=== PATIENT | female | born 1975 | race Caucasian/White ===

== ENCOUNTER → 2017-04-21 | Outpatient (CLI) | payer OTHER ==
--- NOTE | 2017-04-22 15:18 | Mammography Report ---
DIGITAL SCREENING MAMMOGRAM: 04/21/2017 CLINICAL INDICATION: A 41-year-old for screening. COMPARISON: 06/2015 TECHNIQUE: Routine CC and MLO projections were obtained of the breasts. FINDINGS: Scattered fibroglandular tissue is present within the breasts. There are no dominant eric s, suspicious microcalcifications, or secondary signs of malignancy. In comparison to the previous st udies, there are no significant changes. ASSESSMENT: NO MAMMOGRAPHIC EVIDENCE OF MALIGNANCY. NO SIGNIFICANT INTERVAL CHANGES. RECOMMENDATION: Screening mammography is recommended annually. BIRADS category 1 - negative. STANDARD QUALIFYING STATEMENTS 1. This examination was reviewed with the aid of Computed-Aided Detection (CAD). 2. A negative or benign imaging report should not delay biopsy if clinically suspicious findings are present. Consider surgical consultation if warranted. More than 5% of cancers are not identified by i maging. 3. Dense breasts may obscure an underlying neoplasm. JOB #: [id number] EXT JOB #:[id number]
== END ==
LOC: DI 15:30
PROVIDERS: ATTEND Family Medicine
DX: Z12.31 Encounter for screening mammogram for malignant neoplasm of breast (principal)
CPT/HCPCS: 77067

== ENCOUNTER 2017-04-27 08:00 | Outpatient (CLI) | payer OTHER | END 2017-04-27 23:59 | disposition home or self-care (01) | LOC: LAB.R 08:00 | PROVIDERS: ATTEND Obstetrics & Gynecology | DX: N89.8 Other specified noninflammatory disorders of vagina (principal); Z11.3 Encounter for screening for infections with a predominantly sexual mode of transmission | CPT/HCPCS: 87480; 87491; 87510; 87591; 87660 ==

== ENCOUNTER 2018-04-25 14:27 | Outpatient (CLI) | payer OTHER ==
--- NOTE | 2018-04-26 13:24 | Mammography Report ---
Reason: SCREENING MAMMO Procedure Date: 04/25/2018 Accession Number: [id number] / [id number] Procedure: [facility] - Screening Mammo Dig Bilat CPT Code: FULL RESULT: EXAM: Screening Mammo Dig Bilat DATE: 04/25/2018 2:49 PM CLINICAL HISTORY: Screening mammogram. TECHNIQUE: Bilateral CC, exaggerated CC and MLO views were obtained. COMPARISON: 04/21/2017, 06/12/2015 FINDINGS: There are scattered fibroglandular densities. No significant interval change. No suspicious masses, clustered microcalcifications, or regions of architectural distortion are identified. IMPRESSION: Negative examination RECOMMENDATION: Routine annual screening unless otherwise clinically indicated. BIRADS CATEGORY 1: Negative STANDARD QUALIFYING STATEMENTS: 1. This examination was reviewed with the aid of Computer-Aided Detection (CAD). 2. A negative or benign imaging report should not delay biopsy if clinically suspicious findings are present. Consider surgical consultation if warrented. More than 5% of cancers are not identified by imaging. 3. Dense breasts may obscure an underlying neoplasm.
== END 2018-04-25 14:28 | disposition home or self-care (01) ==
LOC: DI 14:27
DX: Z12.31 Encounter for screening mammogram for malignant neoplasm of breast (principal)
CPT/HCPCS: 77067

== ENCOUNTER 2020-04-03 14:30 | Outpatient (CLI) | payer OTHER ==
--- NOTE | 2020-04-04 11:49 | Mammography Report ---
BILATERAL DIGITAL SCREENING MAMMOGRAM 3D/2D: 04/03/2020 CLINICAL: Routine screening. Comparison is made to exams dated: 04/25/2018 mammogram, 04/21/2017 mammogram, and 06/12/2015 mammogr am - [facility]. The tissue of both breasts is heterogeneously dense. This may low er the sensitivity of mammography. No significant masses, calcifications, or other findings are seen in either breast. There has been no significant interval change. IMPRESSION: NEGATIVE There is no mammographic evidence of malignancy. A 1 year screening mammogram is recommended. This exam was interpreted at Station ID: [id number]. NOTE: For mammograms, a report in lay terms will be sent to the patient. Approximately 15% of breast malignancies will not be visualized mammographically. In the management of a palpable breast mass, a negative mammogram must not discourage biopsy of a clinically suspicious lesion. Electronically Signed By: Kye Rodrigues M.D., jr/gabriel:04/03/2020 15:22:15 ACR BI-RADS Category 1: Negative 3341F PARENCHYMAL PATTERN: (D) - The breast(s) demonstrate(s) heterogeneously dense fibroglandular ty manning. BI-RADS CATEGORY: (1) - 1 RECOMMENDATION: (ANNUAL) - Recommend routine annual screening mammography. [id number] 1 year screening LATERALITY: (B)
== END 2020-04-03 14:31 | disposition home or self-care (01) ==
LOC: DI.N 14:30
DX: Z12.31 Encounter for screening mammogram for malignant neoplasm of breast (principal)
CPT/HCPCS: 77063; 77067